=== PATIENT | female | born 1950 | race Caucasian/White ===

== ENCOUNTER 2020-07-02 09:06 | Outpatient (RCR) | payer MEDICARE, OTHER, SELFPAY ==
--- NOTE | 2020-07-02 10:30 | PTOPEVAL ---
Thank you for referring Estella Frey to [facility].? The patient is scheduled to be seen for therapy? ____x/week for ___ weeks. Please review, sign, date and return this plan of care JOSE ANGEL. I agree with and certify that the following plan of care is medically necessary. Referring Physician Date Admitting Provider: Attending Provider: Juve Portillo, MD Referring Provider: *PT Outpatient Evaluation Start: 07/02/20 09:18 Freq: Status: Active Protocol: Document 07/02/20 09:15 [facility] (Rec: 07/02/20 10:05 [facility] [id number]) Therapy Assessment Status Assessment Status Assessment Status Evaluation Evaluation Information Problem Diagnosis R foot drop Onset 06/26/20 Additional Evaluation Detail LEFS = 65% functional decline Subjective Information patient reports she was seeing Query Text:As Reported By Patient/ Dr Portillo for mm issues. she Family reports she was diagnosed with a drop foot of the R LE. however, she went for a bracing of the foot and her therapist there reccomended she try therapy first instead of a brace due to having active movement of the ankle. she reports she has difficulty with bringing her foot up as much as the other foot. she reports having weakness in the R LE. she has history of surgery on the spine. she has several rods and screws. she has a history of dizziness, decreased balance, and falls. she has broken her shoulder due to falling. Pain Assessment Timing of Pain Assessment Timing of Pain Assessment Assessment Pain Scale Pain Scale Used Numeric (1 - 10) Self Report Pain Assessment Right Ankle(s) Reported Pain Level 0 Pain Score Pain Score 0: Self Report Additional Pain Score Comments patient reports she does have neuropathy in the feet. Interventions Used Interventions Used By Clinicians Activity or ADL's,Education, Exercise Lower Extremity Range of Motion Ankle/Foot Range of Motion Right Ankle Dorsiflextion With Knee Extension 0 Range of Motion - Active Ankle Dorsiflextion With Knee Extension 5 Range of Motion - Passive Ankle Plantarflexion Range of Motion - 30 Active Query Text:
--- NOTE | 2020-07-08 13:28 | PCPTNOTE ---
07/08/20-pt called to cancel as her medication is making her sick to her stomach.-
== END 2020-08-01 13:05 | disposition home or self-care (01) ==
LOC: CHSPT 09:06
PROVIDERS: PCP Family Medicine; Visit Provider Internal Medicine Rheumatology
DX: M21.371 Foot drop, right foot (principal)
CPT/HCPCS: 97110; 97116; 97161; 97530

== ENCOUNTER 2021-04-01 10:48 | Outpatient (RCR) | payer MEDICARE, OTHER, SELFPAY ==
--- NOTE | 2021-04-01 13:14 | PTOPEVAL ---
Thank you for referring Estella Frey to [facility].? The patient is scheduled to be seen for therapy? __3__x/week for 12 visits. Please review, sign, date and return this plan of care JOSE ANGEL. I agree with and certify that the following plan of care is medically necessary. Referring Physician Date Admitting Provider: Attending Provider: Lydia Wu Referring Provider: *PT Outpatient Evaluation Start: 04/01/21 11:10 Freq: Status: Active Protocol: Document 04/01/21 11:05 [facility] (Rec: 04/01/21 11:56 [facility] [id number]) Therapy Assessment Status Assessment Status Assessment Status Evaluation Evaluation Information Problem Diagnosis disequillibrium Onset 03/11/21 Subjective Information Pt. developed balance issues Query Text:As Reported By Patient/ on/off about 4 years ago. Pt. Family reports that it has worsened. She reports she has experienced 4 falls in the past month. She states that she using a walker currently, but did not use her walker during the past falls. She reports that she enjoys traveling but avoids traveling due to her unsteadiness. She does notice a ringing in her ears which has been an issue for years, just seems to be worsening. Pt. reports that her goal is to be able to walk more safely and return to traveling again without fear of falling. Prior Level of Function Activity Level (Last 3 Months) Occupation disabled Hand Dominance Left Activity of Daily Living Ability Independent Indoor/Home Mobility Independent Community Mobility Independent Stairs Ability Independent Functional Cognition (Planning, Shopping Independent , Taking Medications) Cooking Yes Cleaning Yes Laundry Yes Shopping Yes Driving No Pain Assessment Timing of Pain Assessment Timing of Pain Assessment Pre-Treatment Pain Scale Pain Scale Used Numeric (1 - 10) Self Report Pain Assessment Lower Back Reported Pain Level 0 Pain Description Aching Pain Frequency Intermittent Lowest Pain Intensity 0
--- NOTE | 2021-04-16 14:56 | PTOPEVAL ---
Thank you for referring Estella Frey to [facility].? The patient is scheduled to be seen for therapy? ____x/week for ___ weeks. Please review, sign, date and return this plan of care JOSE ANGEL. I agree with and certify that the following plan of care is medically necessary. Referring Physician Date Admitting Provider: Attending Provider: Lydia Wu Referring Provider: *PT Outpatient Evaluation Start: 04/01/21 11:10 Freq: Status: Active Protocol: Document 04/16/21 13:55 [facility] (Rec: 04/16/21 14:54 [facility] [id number]) Therapy Assessment Status Assessment Status Assessment Status Progress Evaluation Information Problem Diagnosis disequillibrium Onset 03/11/21 Subjective Information patient reports she feels Query Text:As Reported By Patient/ alright this date. she Family reports mild pain in the lower back today. Pain Assessment Timing of Pain Assessment Timing of Pain Assessment Assessment Pain Scale Pain Scale Used Numeric (1 - 10) Self Report Pain Assessment Lower Back Reported Pain Level 5 Pain Score Pain Score 5: Self Report Interventions Used Interventions Used By Clinicians Activity or ADL's,Education, Exercise Lower Extremity Muscle Strength Testing General Lower Extremity Strength Gross Lower Extremity Strength -bilateral hip flexion 4+/5 -bilateral hip abduction 4/5 -bilateral knee flexion 4+/5 -bilateral knee extension 4/5 Balance Assessment Tinetti Balance Assessment Sitting Balance Steady, safe Ability to Arise Able, w/o using arms Attempts to Arise Arises on 1st attempt Immediate Standing Balance Steady with support Standing Balance Steady, wide stance Nudged Response Begins to fall Standing with Eyes Closed Unsteady Step Pattern Turning 360 Degrees Discontinuous steps Stability Turning 360 Degrees Unsteady, grabs/staggers Sitting Down Safe, steady Initiation of Gait No hesitancy Right Foot Step Length Does pass stance foot Right Foot Step Height Completely clears floor Left Foot Step Length Does pass stance foot Left Foot Step Height Completely clears floor Step Symmetry Step length appears equal Step Continuity Steps appear continuous Path Description Mild/moderate deviation Trunk Description Marked sway or uses aide Walking Stance Heels together Assistive Devices Used Yes Tinetti Composite Score (Balance + Gait) 18 (/28)
--- NOTE | 2021-05-01 15:21 | PTOPEVAL ---
Thank you for referring Estella Frey to [facility].? The patient is scheduled to be seen for therapy? ____x/week for ___ weeks. Please review, sign, date and return this plan of care JOSE ANGEL. I agree with and certify that the following plan of care is medically necessary. Referring Physician Date Admitting Provider: Attending Provider: Lydia Wu Referring Provider: *PT Outpatient Evaluation Start: 04/01/21 11:10 Freq: Status: Active Protocol: Document 05/01/21 14:00 [facility] (Rec: 05/01/21 15:21 [facility] [id number]) Therapy Assessment Status Assessment Status Assessment Status Discharge Evaluation Information Problem Diagnosis disequillibrium Onset 03/11/21 Subjective Information patient reports she feels Query Text:As Reported By Patient/ good this date. she reports Family minimal lower back pain, no falls, and being compliant with her HEP at home. she reports she is ready to DC skilled PT at this time. Pain Assessment Timing of Pain Assessment Timing of Pain Assessment Assessment Pain Scale Pain Scale Used Numeric (1 - 10) Self Report Pain Assessment Lower Back Reported Pain Level 2 Pain Score Pain Score 2: Self Report Interventions Used Interventions Used By Clinicians Activity or ADL's,Electrical Stimulation,Exercise,Heat Lower Extremity Muscle Strength Testing General Lower Extremity Strength Gross Lower Extremity Strength -bilateral hip flexion 4+/5 -bilateral hip abduction 4/5 -bilateral knee flexion 5/5 -bilateral knee extension 5/5 Balance Assessment Tinetti Balance Assessment Sitting Balance Steady, safe Ability to Arise Able, w/o using arms Attempts to Arise Arises on 1st attempt Immediate Standing Balance Steady with support Standing Balance Steady, wide stance Nudged Response Staggers, catches self Standing with Eyes Closed Unsteady Step Pattern Turning 360 Degrees Discontinuous steps Stability Turning 360 Degrees Unsteady, grabs/staggers Sitting Down Safe, steady Initiation of Gait No hesitancy Right Foot Step Length Does pass stance foot Right Foot Step Height Completely clears floor Left Foot Step Length Does pass stance foot Left Foot Step Height Completely clears floor Step Symmetry Step length appears equal Step Continuity Steps appear continuous Path Description Mild/moderate deviation Trunk Description
== END 2021-05-01 15:24 | disposition home or self-care (01) ==
LOC: CHSPT 10:48
PROVIDERS: PCP Family Medicine
DX: R42 Dizziness and giddiness (principal)
CPT/HCPCS: 97014; 97110; 97161; 97530; G0283

== ENCOUNTER 2025-08-16 10:29 | Outpatient (CLI) | payer MEDICARE, OTHER, SELFPAY ==
--- NOTE | ~2025-08-16 | CT_ITS ---
EXAMINATION: CT abdomen pelvis wo/w con DATE: 08/16/2025 11:37 INDICATION: Recurrent bacterial cystitis. TECHNIQUE: Computed tomography (CT) of the abdomen and pelvis was performed without and with intravenous contrast using a total of 130 mL Omnipaque-350 intravenous contrast with a double-bolus technique for simultaneous opacification of the renal parenchyma and renal collecting system. Automated exposure control and iterative reconstruction technique were employed. The dose- length product was 768.01 mGy-cm. COMPARISON: None FINDINGS: The visualized portions of the lung bases demonstrate interstitial opacities and groundglass opacities, consistent with atelectasis versus chronic interstitial lung disease. A calcified left lung nodule and calcified subcarinal lymph node are consistent with old granulomatous disease. No pleural effusion. Cardiomegaly is noted. There are coronary artery calcifications. No pericardial effusion. There is a small sliding hiatal hernia. The liver is normal. There are changes of cholecystectomy. Calcifications in the spleen are consistent with old granulomatous disease. The pancreas and right adrenal gland are normal. There are cysts in right kidney measuring up to 11 mm. There are changes of left adren alectomy and left nephrectomy. Right ureter is well opacified and is normal. There is no urolithiasis. In the anterior bladder, there is a 9 mm crescent- shaped filling defect. There are no dilated loops of bowel. The appendix is normal. There is calcified atherosclerosis of the aorta and many of the other arteries. There are changes of posterior fusion procedure from T11 to S1 and the iliac bones. There is a chronic compression fracture of T11. At T11, the screws extend beyond the superior endplate. There is mild chronic anterior wedging of T8-T10 vertebral bodies. There is severe thoracic spondylosis. There are old healed right rib fractures. IMPRESSION: 1. 9 mm crescent-shaped filling defect in the anterior bladder, which may be hematoma. Reviewed, dictated and finalized at location E. E ASSESSOR IMPRESSION: 1. 9 mm crescent-shaped filling defect in the anterior bladder, which may be he matoma.
[2025-08-16 11:10] LABS: Estimated Glomerular Filt Rate > 60
== END 2025-08-16 10:30 | disposition home or self-care (01) ==
PROVIDERS: PCP Family Medicine; Visit Provider Urology
DX: N30.90 Cystitis, unspecified without hematuria (principal)
CPT/HCPCS: 74178; Q9967